=== PATIENT | male | born 1930 | race Caucasian/White ===

== ENCOUNTER 2018-11-30 14:11 | Emergency (ER) | payer OTHER ==
[~2018-11-30] VITALS: Ht 154.9 cm; Wt 54.4 kg
[2018-11-30 14:24] VITALS: BP_SYST 150
[2018-11-30] MEDS ORDERED: NACL 0.9% 1,000 ML IV ONE (14:45)
[2018-11-30 15:00] LABS: BASOPHILS # (AUTO) 0.1 K/uL (0.0-0.2); BASOPHILS % (AUTO) 0.8 % (0.0-2.0); EOSINOPHILS # (AUTO) 0.2 K/uL (0.0-0.4); EOSINOPHILS % (AUTO) 3.7 % (0.0-4.0); HEMATOCRIT 39.7 % (36-54); HEMOGLOBIN 12.9 g/dL (14.0-18.0); LYMPHOCYTES # (AUTO) 1.2 K/uL (1.0-5.5); LYMPHOCYTES % (AUTO) 17.4 % (20.5-51.5); MEAN CORPUSCULAR HEMOGLOBIN 30 pg (27-31); MEAN CORPUSCULAR HGB CONC 33 % (32-36); MEAN CORPUSCULAR VOLUME 92 fL (79.0-98.0); MONOCYTES # (AUTO) 0.6 K/uL (0.0-1.0); MONOCYTES % (AUTO) 8.8 % (1.7-9.3); NEUTROPHILS # (AUTO) 4.7 K/uL (1.8-7.7); NEUTROPHILS % (AUTO) 69.3 % (40.0-70.0); PLATELET COUNT (AUTO) 224 K/uL (130-430); RED BLOOD CELL COUNT(AUTO) 4.34 MIL/uL (4.2-6.2); RED CELL DISTRIBUTION WIDTH 16.8 % (9.0-15.0); WHITE BLOOD COUNT (AUTO) 6.7 K/uL (4.8-10.8)
[2018-11-30 15:54] LABS: BILIRUBIN,URINE NEGATIVE (NEGATIVE); BLOOD, URINE NEGATIVE (NEGATIVE); CLARITY/URINE CLEAR (CLEAR); COLOR,URINE ORANGE (YELLOW); GLUCOSE,URINE NEGATIVE (NEGATIVE); KETONES,URINE 1+ (NEGATIVE); LEUKOCYTE ESTERASE ,URINE NEGATIVE (NEGATIVE); NITRITE, URINE NEGATIVE (NEGATIVE); PROTEIN URINE NEGATIVE (NEGATIVE)
[2018-11-30 16:03] LABS: ALANINE AMINOTRANSFERASE 8 U/L (12-78); ALBUMIN 3.5 g/dL (3.4-4.8); ANION GAP 2 (5-15); ASPARTATE AMINOTRANSFERASE 18 U/L (10-37); CHLORIDE 100 mmol/L (98-107); CHOLESTEROL 186 mg/dL (<200); GLUCOSE 103 mg/dL (70-99); HDL CHOLESTEROL 60 mg/dL (>45); LDL CHOLESTEROL 107 mg/dL (<100); POTASSIUM 4.8 mmol/L (3.5-5.1); SODIUM SERUM 137 mmol/L (136-145); TOTAL BILIRUBIN 0.5 mg/dL (0.0-1.0); TRIGLYCERIDES 101 mg/dL (30-150); UREA NITROGEN, BLOOD 18 mg/dL (8-21)
[2018-11-30 16:04] LABS: ALCOHOL, BLOOD < 3 mg/dL (<10)
[2018-11-30 16:23] LABS: BARBITURATE, URINE NEGATIVE (NEG <=200); BENZODIAZEPINE, URINE NEGATIVE (NEG <=150); CANNABINOID, URINE NEGATIVE (NEG <=50); COCAINE, URINE NEGATIVE (NEG <=150); METHAMPHETAMINES SCREEN,URINE NEGATIVE (NEG <=500); OPIATE, URINE NEGATIVE (NEG <=100); PHENCYCLIDINE SCREEN,URINE NEGATIVE (NEG <=25); UR TRICYCLIC ANTIDEPRESSANTS NEGATIVE (NEG <=300); URINE AMPHETAMINE NEGATIVE (NEG <=500); URINE METHADONE NEGATIVE (NEG <=200); URINE OXYCODONE SCREEN NEGATIVE (NEG <=100); URINE PROPOXYPHENE SCREEN NEGATIVE (NEG <=300)
[2018-11-30 16:24] LABS: CALCIUM 9.7 mg/dL (8.4-11.0)
[2018-11-30 16:25] LABS: ACETAMINOPHEN < 1 ug/mL (1-30)
[2018-11-30 19:42] VITALS: BP_SYST 165
[2018-11-30 23:41] LABS: CHOLESTEROL 192 mg/dL (<200); HDL CHOLESTEROL 58 mg/dL (>45); LDL CHOLESTEROL 109 mg/dL (<100); TRIGLYCERIDES 105 mg/dL (30-150)
== END 2018-11-30 19:24 ==
LOC: SED 14:11
DX: E86.0 Dehydration (principal); F23 Brief psychotic disorder; F31.9 Bipolar disorder, unspecified; G20 Parkinson's disease; I10 Essential (primary) hypertension; J44.9 Chronic obstructive pulmonary disease, unspecified; E03.9 Hypothyroidism, unspecified; F03.90 Unspecified dementia, unspecified severity, without behavioral disturbance, psychotic disturbance, mood disturbance, and anxiety; Z86.2 Personal history of diseases of the blood and blood-forming organs and certain disorders involving the immune mechanism
CPT/HCPCS: 36415; 80053; 80061; 80307; 81003; 83036; 85025; 87081; 96360; 99285; G0480; G0481; G0482; J7030

== ENCOUNTER 2018-12-08 20:46 | Observation (INO) | payer OTHER ==
[~2018-12-08] VITALS: Ht 172.7 cm; Wt 48.1 kg
--- NOTE | 2018-12-08 19:58 | NUR ---
ADMISSION NOTE Received patient from transport team. Patient admitted to observation with diagnosis of dehydration, hypotension. Patient oriented to hospital routine, call light, toileting and safety-patient confused.
[2018-12-08 20:00] VITALS: BP_SYST 117
[2018-12-08] MEDS ORDERED: MAG-AL HYDROX/SIMETH 30 ML UDC PO PRN (21:15)
[2018-12-08] MEDS ORDERED: ACETAMINOPHEN 325 MG TABLET PO PRN (21:15)
[2018-12-08] MEDS ORDERED: ZOLPIDEM TARTRATE 5 MG TABLET PO PRN (21:15)
[2018-12-08] MEDS ORDERED: guaiFENesin 200 MG/10 ML UDC PO PRN (21:15)
[2018-12-08] MEDS ORDERED: cloNIDine HCL 0.1 MG TABLET PO PRN (21:15)
[2018-12-08] MEDS: D5/0.45 NS 1,000 ML IV SCH (22:02)
--- NOTE | 2018-12-08 22:02 | NUR ---
IVF BAG OF D51/2NS HUNG AND REGULATED AT ORDERED RATE OF 80 CC/HR. PT TOLERATED WELL. NO S/S OF DISTRESS. SAFETY MAINTAINED. WILL MONITOR.
--- NOTE | 2018-12-08 23:13 | NUR ---
CONSULT: CONSULT CALLED FOR DR. MOTT I SPOKE WITH KINA SALEH REASON FOR CONSULT: DEPRESSION AND PSYCHOSIS REQUESTING CONSULT: DR. ARIAS ADMIN DIR PHONE NUMBER: [phone]
--- NOTE | 2018-12-08 23:17 | NUR ---
FACE SHEET FAXED OVER TO DR. MOTT'S OFFICE
--- NOTE | 2018-12-08 23:19 | NUR ---
CONSULT: CONSULT CALLED FOR DR. YOLI GAGNON I SPOKE WITH JOHN SALEH REASON FOR CONSULT: HYPOTENSION REQUESTING CONSULT: DR. ARIAS WASTE MACHINE OFFBEARER PHONE NUMBER: [phone]
--- NOTE | 2018-12-09 00:05 | NUR ---
ROUNDS: PT RESTING IN BED, AWAKE AND WATCHING TELEVISION. NO S/S OF DISTRESS, BREATHING IS UNLABORED TO ROOM AIR. VSS. PT DENIES PAIN OR DISCOMFORT. SAFETY PRECAUTIONS ARE IN PLACE: BED IS LOCKED IN LOWEST POSITION, CALL LIGHT IS WITH PT, SIDE RAILS UP X3, BED ALARM ON, CLOSE TO NURSES STATION. WILL CONT TO MONITOR.
[2018-12-09 00:55] VITALS: BP_SYST 129
--- NOTE | 2018-12-09 02:08 | NUR ---
SLEEPING PT RESTING IN BED WITH EYES CLOSED. VISIBLE SYMMETRICAL RISE AND FALL OF CHEST TO ROOM AIR, BREATHING IS EVEN AND EFFORTLESS. NO S/S OF ACUTE DISTRESS. SKIN IS WARM AND DRY TO TOUCH. IVF INFUSING ORDERED. PT APPEARS COMFORTABLE AT THIS TIME. SAFETY PRECAUTIONS MAINTAINED. WILL MONITOR.
--- NOTE | 2018-12-09 04:30 | NUR ---
HYGIENE/SKIN PHOTOS PT CLEANED AND REPOSITIONED. SKIN PHOTOS TAKEN. PT TOLERATED WELL. NO S/S OF DISTRESS. WILL MONITOR.
--- NOTE | 2018-12-09 05:58 | NUR ---
Nutrition Update Tyler Scale 14 noted. Pt admitted for HTN, Dehydration Diet: Mechanical Soft BMI: 16.2 kg/m2 RD to follow per nutrition care standards.
--- NOTE | 2018-12-09 06:18 | NUR ---
CLOSING NOTE PT RESTING IN BED, NO S/S OF ACUTE DISTRESS, BREATHING IS UNLABORED TO ROOM AIR. VSS THROUGHOUT SHIFT. NO REPORT OF PAIN OR DISCOMFORT. IVF INFUSING AT ORDERED RATE, NO S/S OF INFILTRATION AT IV SITE. ALL NEEDS MET DURING SHIFT. SAFETY AND FALL PRECAUTIONS ARE IN PLACE: BED IS LOCKED IN LOWEST POSITION, CALL LIGHT IS WITH PT, SIDE RAILS UP X3, BED ALARM ON, CLOSE TO NURSES STATION. WILL CONTINUE TO MONITOR UNTIL PT CARE IS ENDORSED TO DAY SHIFT RN.
[2018-12-09 06:38] LABS: BASOPHILS # (AUTO) 0.1 K/uL (0.0-0.2); BASOPHILS % (AUTO) 0.6 % (0.0-2.0); EOSINOPHILS # (AUTO) 0.1 K/uL (0.0-0.4); EOSINOPHILS % (AUTO) 0.8 % (0.0-4.0); HEMATOCRIT 37.6 % (36-54); HEMOGLOBIN 12.3 g/dL (14.0-18.0); LYMPHOCYTES # (AUTO) 1.4 K/uL (1.0-5.5); LYMPHOCYTES % (AUTO) 16.6 % (20.5-51.5); MEAN CORPUSCULAR HEMOGLOBIN 30 pg (27-31); MEAN CORPUSCULAR HGB CONC 33 % (32-36); MEAN CORPUSCULAR VOLUME 91 fL (79.0-98.0); MONOCYTES # (AUTO) 0.7 K/uL (0.0-1.0); MONOCYTES % (AUTO) 8.5 % (1.7-9.3); NEUTROPHILS # (AUTO) 6.1 K/uL (1.8-7.7); NEUTROPHILS % (AUTO) 73.5 % (40.0-70.0); PLATELET COUNT (AUTO) 222 K/uL (130-430); RED BLOOD CELL COUNT(AUTO) 4.11 MIL/uL (4.2-6.2); RED CELL DISTRIBUTION WIDTH 16.9 % (9.0-15.0); WHITE BLOOD COUNT (AUTO) 8.3 K/uL (4.8-10.8)
[2018-12-09 06:53] LABS: ALANINE AMINOTRANSFERASE 4 U/L (12-78); ALBUMIN 3.1 g/dL (3.4-4.8); ANION GAP 4 (5-15); ASPARTATE AMINOTRANSFERASE 17 U/L (10-37); CALCIUM 8.8 mg/dL (8.4-11.0); CHLORIDE 102 mmol/L (98-107); GLUCOSE 108 mg/dL (70-99); POTASSIUM 3.9 mmol/L (3.5-5.1); SODIUM SERUM 139 mmol/L (136-145); TOTAL BILIRUBIN 0.6 mg/dL (0.0-1.0); UREA NITROGEN, BLOOD 33 mg/dL (8-21)
--- NOTE | 2018-12-09 08:00 | NUR ---
RN INITIAL NOTES RECEIVED PATIENT IN BED ALERT VERBAL BUT WITH EPISODES OF CONFUSION , PATIENT HAS DRY SKIN AND NO SIGN OF DISTRESS, RESP EVEN AND UNLABORED , NO DISTRESS NO COMPPAIN OF PAIN
[2018-12-09 08:30] VITALS: BP_SYST 127
--- NOTE | 2018-12-09 10:00 | NUR ---
DR ARIAS VISIT PATIENT SEEN BY DR HUGO LUIS NOT4ED AND WILL FOLLOW UP WITH UA COLLECTION PATIENT AT HIS TIME IS AGITATED
--- NOTE | 2018-12-09 10:26 | NUR ---
HI TOTAL BILIRUBIN PATIENT TOTAL HI BILIRUBIN CALLED TO [facility] AWAITING FOR THE RETURN CALL Addendum: 12/09/18 at 1027 by Nikole Masterson RN ERROR WRONG PATIENT
[2018-12-09] MEDS ORDERED: MODAFINIL 100 MG TABLET (PROVIGIL) PO ONE (11:45)
[2018-12-09] MEDS ORDERED: DOCUSATE SODIUM 250 MG CAPSULE PO PRN (11:45)
[2018-12-09] MEDS ORDERED: ARIPiprazole 5 MG TAB PO ONE (11:45)
[2018-12-09] MEDS ORDERED: MEGESTROL ACETATE 400 MG/10 ML UDC PO ONE (11:45)
[2018-12-09] MEDS: D5/0.45 NS 1,000 ML IV SCH (12:26)
[2018-12-09 12:35] VITALS: BP_SYST 111
--- NOTE | 2018-12-09 14:00 | NUR ---
UA COLLECTED WITH IN AND OUT COLLECTED WITH UA WITH [employer] TO COLLECT PATIENT WITH EPISODES OF KICKING AND STATED DONT HURT ME , DESPITE OF EXPLANATION OF URINE COLLECTION NEEDS ,
[2018-12-09] MEDS ORDERED: FLU VACC TS2019(65UP)/MF59C/PF 45 MCG/0.5 ML SYRINGE I.M. PRN (15:00)
[2018-12-09] MEDS: CARBIDOPA/LEVODOPA 25/250 MG TABLET PO SCH ×2 (15:43→21:38)
[2018-12-09] MEDS ORDERED: cefTRIAXone 1 GM IVPB PREMIX 50 ML IV ONE (16:00)
--- NOTE | 2018-12-09 16:00 | NUR ---
ROUNDS PATIENT AWAKE AND VERBAL HE SAID HE IS FINE
[2018-12-09 16:30] VITALS: BP_SYST 128; BP_SYST 130
--- NOTE | 2018-12-09 16:35 | NUR ---
Data Collection Associate Note Plan was to transfer patient back to [facility], , today. He had been there voluntarily and planned to return there once medically stable. [place], the patient resides in a SNF. Dr Cervantes plans to keep the patient overnight for further medical care. [facility] notified. Plan for possible transfer tomorrow.
[2018-12-09 17:15] LABS: BILIRUBIN,URINE 1+ (NEGATIVE); BLOOD, URINE 1+ (NEGATIVE); CLARITY/URINE SLIGHTLY HAZY (CLEAR); COLOR,URINE YELLOW (YELLOW); GLUCOSE,URINE NEGATIVE (NEGATIVE); KETONES,URINE TRACE (NEGATIVE); LEUKOCYTE ESTERASE ,URINE NEGATIVE (NEGATIVE); NITRITE, URINE NEGATIVE (NEGATIVE); PROTEIN URINE 1+ (NEGATIVE)
--- NOTE | 2018-12-09 17:22 | NUR ---
SIL ARIAS ORDERED FOR ROCEPHIN IGM NOW AND QD ULTRASOUND DONE
--- NOTE | 2018-12-09 17:37 | NUR ---
END RN NOTES WILL CONT CARE . WILL FOLLOW UP WITH DC PLANNING IN AM TO [facility]
[2018-12-09 18:24] LABS: BACTERIA,URINE FEW /HPF (None Seen); COARSE GRANULAR CASTS,URINE 0-10 /LPF (None Seen); FINE GRANULAR CASTS,URINE 0-10 /LPF (None Seen); MUCUS,URINE None Seen /LPF (None Seen); RBC,URINE 0-3 /HPF (0-3); URINE AMORPHOUS URATE 2+ /HPF (None Seen); WBC,URINE 0-3 /HPF (0-3)
--- NOTE | 2018-12-09 19:25 | NUR ---
Opening Note Received patient awake, resting in bed, AOx2 to name and place. No distress and nonlabored breathing on room air. IVF infusing via IV to LFA. Bed is locked in lowest position, side rails up 3x, bed alarm on and call light w/in reach. Updated board.
[2018-12-09 20:00] VITALS: BP_SYST 106
[2018-12-09] MEDS: MEGESTROL ACETATE 400 MG/10 ML UDC PO SCH (21:38)
--- NOTE | 2018-12-09 21:38 | NUR ---
Medications Due medications given. Patient was compliant and swallowed medication without difficulty. Patient is calm, denies pain or discomfort. Safety precautions maintained and call light w/in reach.
--- NOTE | 2018-12-10 00:20 | NUR ---
RN rounds Patient resting quiet and calm. He was repositioned and cooperated. IVF infusing well. Safety precautions maintained.
[2018-12-10 00:40] VITALS: BP_SYST 115
[2018-12-10] MEDS: D5/0.45 NS 1,000 ML IV SCH (00:42)
--- NOTE | 2018-12-10 00:46 | NUR ---
IVF IVF fluids empty. Hung new bag of D5 1/2 NS and infusing as ordered at 80 ml/hr.
--- NOTE | 2018-12-10 02:28 | NUR ---
RN rounds Patient was resting w/ eyes closed and momentarily awakened for reposition. He denied any pain and had no further needs. Safety precautions maintained and call light w/in reach.
--- NOTE | 2018-12-10 04:00 | NUR ---
RN rounds Patient resting in comfortable position. Nonlabored breathing. IVF infusing well. Safety precautions maintained.
--- NOTE | 2018-12-10 05:41 | NUR ---
EKG RT at bedside for EKG.
--- NOTE | 2018-12-10 06:00 | NUR ---
Dr. Jessica Whittington S/W Dr. William Whittington regarding EKG results indicate abnormal reading of acute UT. He ordered stat Troponin.
--- NOTE | 2018-12-10 07:00 | NUR ---
Flu shot / closing note Flu shot administered, patient tolerated. Provided information and explained side effects. Patient resting in comfortable position, no sign of distress. Nonlabored breathing on room air. Denies pain. IVF infusing well. Needs met throughout shift, safety precautions in place and call light w/in reach. Will endorse care.
[2018-12-10 07:56] LABS: BASOPHILS % (AUTO) 0.6 % (0.0-2.0); EOSINOPHILS # (AUTO) 0.1 K/uL (0.0-0.4); EOSINOPHILS % (AUTO) 1.8 % (0.0-4.0); HEMATOCRIT 38.4 % (36-54); HEMOGLOBIN 12.6 g/dL (14.0-18.0); LYMPHOCYTES # (AUTO) 1.2 K/uL (1.0-5.5); LYMPHOCYTES % (AUTO) 16.1 % (20.5-51.5); MEAN CORPUSCULAR HEMOGLOBIN 30 pg (27-31); MEAN CORPUSCULAR HGB CONC 33 % (32-36); MEAN CORPUSCULAR VOLUME 92 fL (79.0-98.0); MONOCYTES # (AUTO) 0.5 K/uL (0.0-1.0); MONOCYTES % (AUTO) 6.5 % (1.7-9.3); NEUTROPHILS # (AUTO) 5.4 K/uL (1.8-7.7); PLATELET COUNT (AUTO) 238 K/uL (130-430); RED BLOOD CELL COUNT(AUTO) 4.19 MIL/uL (4.2-6.2); RED CELL DISTRIBUTION WIDTH 16.7 % (9.0-15.0); WHITE BLOOD COUNT (AUTO) 7.1 K/uL (4.8-10.8)
--- NOTE | 2018-12-10 08:00 | NUR ---
RN INITIAL NOTES RECEIVED PATIENT IN BED ALERT AWAKE AND STATED HE IS FEELING BETTER NOW NO COMPLAIN OF PAIN NO COMPLAIN OF DISTRESS RESP EVEN AND UNLABORED
[2018-12-10 08:15] VITALS: BP_SYST 111
[2018-12-10 08:25] LABS: ALBUMIN 2.9 g/dL (3.4-4.8); ANION GAP 4 (5-15); ASPARTATE AMINOTRANSFERASE 15 U/L (10-37); CALCIUM 8.5 mg/dL (8.4-11.0); CHLORIDE 99 mmol/L (98-107); CREATININE 1.43 mg/dL (0.55-1.30); GLUCOSE 97 mg/dL (70-99); POTASSIUM 3.8 mmol/L (3.5-5.1); SODIUM SERUM 135 mmol/L (136-145); TOTAL BILIRUBIN 0.4 mg/dL (0.0-1.0); UREA NITROGEN, BLOOD 27 mg/dL (8-21)
[2018-12-10 08:41] LABS: ALANINE AMINOTRANSFERASE 2 U/L (12-78)
[2018-12-10] MEDS ORDERED: MODAFINIL 100 MG TABLET (PROVIGIL) PO SCH (09:00)
[2018-12-10] MEDS ORDERED: ARIPiprazole 5 MG TAB PO SCH (09:00)
[2018-12-10] MEDS: MEGESTROL ACETATE 400 MG/10 ML UDC PO SCH (09:34)
[2018-12-10] MEDS: CARBIDOPA/LEVODOPA 25/250 MG TABLET PO SCH ×2 (09:39→15:58)
--- NOTE | 2018-12-10 10:00 | NUR ---
SLEEPING PATIENT SLEEPING A THIS TIME NO ACUTE DISTRESS
--- NOTE | 2018-12-10 12:00 | NUR ---
DR ARIAS PATIENT SEEN BY DR ARIAS DISCUSSED PATIENT CONDITION AND WILL DC BACK TO [facility]
[2018-12-10 12:20] VITALS: BP_SYST 89
--- NOTE | 2018-12-10 14:00 | NUR ---
DR KETN CARDIOLOGY VISIT INFORMED DR KENT PT WILL BE DC BUT WITH EPISODES OF LOW BP READING ORDERS NOTED
[2018-12-10 14:11] VITALS: BP_SYST 111
--- NOTE | 2018-12-10 15:30 | NUR ---
CARDIOLOGY PATIENT SEEN BY DR KALIN KENT INFORMED PATIENT HAS EPISODES OF LOW BP MD SAID TO GIVE MIDODRINE FOR NOW AND STILL OK TO TRANSFER TO [facility]
--- NOTE | 2018-12-10 15:53 | NUR ---
DC Planning: The pt was diverted admission from [facility] due to no bed. The pt may return to [facility] when bed available per CORBY Vazquez.
[2018-12-10] MEDS ORDERED: cefTRIAXone 1 GM in D5W 50 ML IV SCH (16:00)
--- NOTE | 2018-12-10 16:02 | NUR ---
Metal Leaf Layer: Follow up re d/c and transfer ONLINE FACILITATOR received Dr. amin pt. is ready for D/C as per Dr. Cervantes's orders. ONLINE FACILITATOR spoke to Rn who stated pt. will need an ambulance as he has to be transported on a gurney. ONLINE FACILITATOR canceled transportation with [facility]. ONLINE FACILITATOR made arrangements with [facility], 5:30, [phone]. ONLINE FACILITATOR contacted RN and daughter Anastasiya, brought packet to Rn station.
--- NOTE | 2018-12-10 16:07 | NUR ---
Dietitian Recommendations * Recommend CCHO low carb-45 gm, 2gm Na, mechanical soft diet with Ensure Enlive TID and Martell BID (provides additional l210 kcal and 65 gm of protein/day). * Encourage PO intake LP, RD Please refer to Nutrition Assessment for details. Signed: 12/10/18 at 1608 by Aliza LUCERO <Co-Signature Required> Co-Signed: 12/10/18 at [address] Addendum: 12/10/18 at 1611 by Aliza LUCERO Amended: Links added.
[2018-12-10] MEDS ORDERED: MIDODRINE HCL 5 MG TABLET (PROAMATINE) PO ONE (16:15)
[2018-12-10 16:44] VITALS: BP_SYST 131
--- NOTE | 2018-12-10 18:45 | NUR ---
D/C Patient Patient given medication reconciliation form and D/C instructions. Exit Care provided. Patient verbalized understanding Report given to Benedicto in [facility] and cont same med. MD discussed with patient the results and treatment provided. . Patient in stable condition BP 96/67 no distress and patient wants to finisgh his dinner and appreciated the care , ID band removed. IV catheter removed, intact and dressing applied, no active bleeding.meds reconciled by md . Patient educated on pain management. All belongings sent with patient.
[2018-12-10] MEDS ORDERED: MIDODRINE HCL 5 MG TABLET (PROAMATINE) PO SCH (21:00)
== END 2018-12-10 18:00 ==
LOC: SMU 20:46 → STU 20:56
PROVIDERS: ADMIT Internal Medicine; ATTEND Internal Medicine
DX: I95.9 Hypotension, unspecified (principal); J44.9 Chronic obstructive pulmonary disease, unspecified; G20 Parkinson's disease; K21.9 Gastro-esophageal reflux disease without esophagitis; D64.9 Anemia, unspecified; F02.80 Dementia in other diseases classified elsewhere, unspecified severity, without behavioral disturbance, psychotic disturbance, mood disturbance, and anxiety; R41.0 Disorientation, unspecified; N17.9 Acute kidney failure, unspecified; E86.0 Dehydration; E46 Unspecified protein-calorie malnutrition; Z23 Encounter for immunization
CPT/HCPCS: 36415 ×2; 76770; 80053 ×2; 81000; 83735; 83880; 84443; 84484; 85025 ×2; 87081; 90471; 93005; 93306; 96361 ×3; 96365; G0378 ×3; J0696; J7060

== ENCOUNTER 2018-12-13 14:58 | Outpatient (CLI) | payer OTHER ==
[2018-12-13 15:41] LABS: CHOLESTEROL 135 mg/dL (<200); HDL CHOLESTEROL 41 mg/dL (>45); LDL CHOLESTEROL 76 mg/dL (<100); TRIGLYCERIDES 71 mg/dL (30-150)
== END 2018-12-13 20:43 | disposition home or self-care (01) ==
LOC: SLB 14:58
PROVIDERS: ATTEND Psychiatry & Neurology Psychiatry
DX: Z00.00 Encounter for general adult medical examination without abnormal findings (principal)
CPT/HCPCS: 36415; 80061; 83036